=== PATIENT | female | born 1990 | race Caucasian/White ===

== ENCOUNTER 2017-03-16 11:40 | Observation (INO) | payer BC, MEDICAID ==
[~2017-03-16] VITALS: Ht 165.1 cm; Wt 96.6 kg
[2017-03-16] VITALS (11 sets, daily range): BP systolic 104–143; BP diastolic 62–85
[~2017-03-16 11:40] MED LIST: ACE3 PO; IBU800 PO; IBUP800T37 PO; MET2 PO; NORG1TAB76 PO; OXYC-865 PO; PER PO; PNV1TABL92 PO
--- NOTE | 2017-03-16 11:50 | ER Report ---
History and Physical Time Seen By MD: 11:50 (ALANNAH FERGUSON) HPI/ROS CHIEF COMPLAINT: Abdominal pain HISTORY OF PRESENT ILLNESS: This is a 26-year-old female who presents to the emergency department with right-sided abdominal pain. Patient states that she woke up at 2:30 this morning with right-sided abdominal pain into her right flank, has had some episodes of diarrhea as well with nausea no vomiting. Patient states that the pain does come around to the right groin as well. Patient denies dysuria, vaginal discharge or bleeding. Patient states her last menstrual cycle was 15 days ago and has been irregular for the last 2-3 cycles. She does have a follow-up a point with her STERILIZATION SPECIALIST tomorrow. She denies chest pain, shortness of breath, headaches, aches or chills. REVIEW OF SYSTEMS: Constitutional: No fever, no chills. Eyes: No discharge. ENT: No sore throat. Cardiovascular: No chest pain, no palpitations. Respiratory: No cough, no shortness of breath. Gastrointestinal: As above. Genitourinary: No hematuria. Musculoskeletal: As above. Skin: No rashes. Neurological: No headache. (ALANNAH FERGUSON) Allergies: Coded Allergies: No Known Drug Allergies (Verified , 07/28/12) Home Meds Reported Medications Ibuprofen (IBUPROFEN) 200 Mg Tablet, 1-2 TAB PO Q6H Y for PAIN, TAB 03/16/17 Discontinued Reported Medications Pnv Cmb#95/Ferrous Fumarate/Fa ( TABLET) 1 Each Tablet, 1 EACH PO DAILY 03/02/12 Discontinued Scripts Oxycodone Hcl/Acetaminophen (PERCOCET 5-325 MG TABLET) 1 Each Tablet, 1 EACH PO Q4-6H Y for PAIN, #20 TAB TAKE 1 TABLET NEEDED FOR PAIN - NO CLOSER THAN EVERY 4-6 HOURS. Prov:MEMO MITCHELL MD 07/21/14 Past Medical/Surgical History The patient has a past medical and surgical history of right foot fracture, wears glasses, wisdom teeth extraction, C-sections 2 (ALANNAH FERGUSON) Reviewed Nurses Notes: Yes (ALANNAH FERGUSON) Hx Smoking: No Smoking Status: Never Smoker Exposure to Second Hand Smoke?: No (ALANNAH FERGUSON [employer] ATTENDANT-BC) Constitutional Vital Sign - Last 24 Hours 03/16/17 03/16/17 03/16/17 03/16/17 11:40 11:44 11:50 11:55 Temp 98.1 Pulse ??? 94 91 Resp 18 B/P (MAP) 144/98 ???/??? (1665) Pulse Ox 97 95 03/16/17 03/16/17 03/16/17 03/16/17 12:00 12:10 12:25 12:40 Pulse ??? 78 79 B/P (MAP) ???/??? (166) Pulse Ox 96 96 03/16/17 03/16/17 03/16/17 03/16/17 12:45 13:00 13:15 13:30 Pulse 77 73 ??? 79 B/P (MAP) ???/??? (166) Pulse Ox 93 98 97 03/16/17 03/16/17 03/16/17 03/16/17 13:45 14:00 14:05 14:06 Pulse 75 83 82 B/P (MAP) ???/??? (1665) 130/90 (103) Pulse Ox 94 95 96 03/16/17 03/16/17 03/16/17 14:20 14:35 14:50 Pulse 79 78 ??? Pulse Ox 95 98 Intake and Output 03/16/17 03/16/17 03/17/17 15:00 23:00 07:00 Intake Total 1000 ml Balance 1000 ml (VERONICA MCGOVERN MD) Physical Exam General Appearance: The patient is alert, has no immediate need for airway protection and no signs of toxicity, sitting upright at the edge of the bed. Eyes: Pupils equal and round no pallor or injection. ENT, Mouth: Mucous membranes are moist. Respiratory: There are no retractions, lungs are clear to auscultation. Cardiovascular: Regular rate and rhythm, no murmurs, clicks or rubs. Gastrointestinal: Abdomen is soft tenderness to the RLQ with palpation, mild rebound tenderness to the right side, negative on the left. +psoas sign. No masses, bowel sounds normal. Neurological: Alert and oriented 4. Moving all extremities. Following all commands. No focal neuro deficits. Skin: Warm and dry, no rashes. Musculoskeletal: Neck is supple non tender. Right CVA tenderness. Extremities are nontender, nonswollen and have full range of motion. DIFFERENTIAL DIAGNOSIS: After history and physical exam differential diagnosis was considered for abdominal pain in a female including but not limited to ovarian cyst, pelvic inflammatory disease, ovarian torsion, urinary tract infection, and appendicitis, kidney stone. (ALANNAH [facility]ERGUSON [facility]-) Medical Decision Making Data Points Result Diagram: 03/16/17 1200 03/16/17 1200 Laboratory Hematology Test 03/16/17 11:46 03/16/17 12:00 Urine Color Straw Urine Clarity Clear Urine pH 5.0 pH (4.8-9.5) Urine Specific [place] 1.011 Urine Protein Negative mg/dL (NEGATIVE) Urine Glucose (UA) Negative mg/dL (NEGATIVE) Urine Ketones Negative mg/dL (NEGATIVE) Urine Blood Negative (NEGATIVE) Urine Nitrite Negative (NEGATIVE) Urine Bilirubin Negative (NEGATIVE) Urine Urobilinogen Negative mg/dL (0.2-1.9) Urine Leukocyte Esterase Negative (NEGATIVE) Urine RBC <1 /HPF (0-2/HPF) Urine WBC 1 /HPF (0-5/HPF) Urine Squamous Epithelial Cells Many /LPF (</=FEW) Urine Bacteria Negative /HPF (NONE-FEW) Urine Mucus None /HPF (NONE-FEW) Urine HCG, Qualitative Negative (NEGATIVE) Red Blood Count 5.02 M/uL (4.17-5.56) Mean Corpuscular Volume 86.6 fL (80.0-96.0) Mean Corpuscular Hemoglobin 29.7 pg (26.0-33.0) Mean Corpuscular Hemoglobin Concent 34.3 g/dL (32.0-36.0) Red Cell Distribution Width 12.4 % (11.5-14.5) Mean Platelet Volume 9.1 fL (7.2-11.1) Neutrophils (%) (Auto) 64.1 % (39.4-72.5) Lymphocytes (%) (Auto) 28.0 % (17.6-49.6) Monocytes (%) (Auto) 5.2 % (4.1-12.4) Eosinophils (%) (Auto) 0.6 % (0.4-6.7) Basophils (%) (Auto) 2.1 % (0.3-1.4) Nucleated RBC Relative Count (auto) 0.1 /100WBC Neutrophils # (Auto) 5.0 K/uL (2.0-7.4) Lymphocytes # (Auto) 2.2 K/uL (1.3-3.6) Monocytes # (Auto) 0.4 K/uL (0.3-1.0) Eosinophils # (Auto) 0.0 K/uL (0.0-0.5) Basophils # (Auto) 0.2 K/uL (0.0-0.1) Nucleated RBC Absolute Count (auto) 0.01 K/uL Sodium Level 139 mmol/L (137-145) Potassium Level 3.5 mmol/L (3.5-5.0) Chloride Level 104 mmol/L (98-107) Carbon Dioxide Level 21 mmol/L (22-31) Blood Urea Nitrogen 8 mg/dl (7-18) Creatinine 0.70 mg/dl (0.52-1.04) Glomerular Filtration Rate Calc > 60.0 Random Glucose 90 mg/dl (75-110) Calcium Level 9.2 mg/dl (8.4-10.2) Total Bilirubin 0.9 mg/dl (0.2-1.3) Aspartate Amino Transf (AST/SGOT) 25 U/L (0-35) Alanine Aminotransferase (ALT/SGPT) 32 U/L (0-56) Alkaline Phosphatase 70 U/L (0-126) Total Protein 7.7 gm/dl (6.3-8.2) Albumin 4.4 g/dl (3.5-5.0) Chemistry Test 03/16/17 11:46 03/16/17 12:00 Urine Color Straw Urine Clarity Clear Urine pH 5.0 pH (4.8-9.5) Urine Specific [place] 1.011 Urine Protein Negative mg/dL (NEGATIVE) Urine Glucose (UA) Negative mg/dL (NEGATIVE) Urine Ketones Negative mg/dL (NEGATIVE) Urine Blood Negative (NEGATIVE) Urine Nitrite Negative (NEGATIVE) Urine Bilirubin Negative (NEGATIVE) Urine Urobilinogen Negative mg/dL (0.2-1.9) Urine Leukocyte Esterase Negative (NEGATIVE) Urine RBC <1 /HPF (0-2/HPF) Urine WBC 1 /HPF (0-5/HPF) Urine Squamous Epithelial Cells Many /LPF (</=FEW) Urine Bacteria Negative /HPF (NONE-FEW) Urine Mucus None /HPF (NONE-FEW) Urine HCG, Qualitative Negative (NEGATIVE) White Blood Count 7.8 k/uL (4.5-11.0) Red Blood Count 5.02 M/uL (4.17-5.56) Hemoglobin 14.9 g/dL (12.0-16.0) Hematocrit 43.5 % (34.0-47.0) Mean Corpuscular Volume 86.6 fL (80.0-96.0) Mean Corpuscular Hemoglobin 29.7 pg (26.0-33.0) Mean Corpuscular Hemoglobin Concent 34.3 g/dL (32.0-36.0) Red Cell Distribution Width 12.4 % (11.5-14.5) Platelet Count 198 K/uL (150-450) Mean Platelet Volume 9.1 fL (7.2-11.1) Neutrophils (%) (Auto) 64.1 % (39.4-72.5) Lymphocytes (%) (Auto) 28.0 % (17.6-49.6) Monocytes (%) (Auto) 5.2 % (4.1-12.4) Eosinophils (%) (Auto) 0.6 % (0.4-6.7) Basophils (%) (Auto) 2.1 % (0.3-1.4) Nucleated RBC Relative Count (auto) 0.1 /100WBC Neutrophils # (Auto) 5.0 K/uL (2.0-7.4) Lymphocytes # (Auto) 2.2 K/uL (1.3-3.6) Monocytes # (Auto) 0.4 K/uL (0.3-1.0) Eosinophils # (Auto) 0.0 K/uL (0.0-0.5) Basophils # (Auto) 0.2 K/uL (0.0-0.1) Nucleated RBC Absolute Count (auto) 0.01 K/uL Glomerular Filtration Rate Calc > 60.0 Calcium Level 9.2 mg/dl (8.4-10.2) Total Bilirubin 0.9 mg/dl (0.2-1.3) Aspartate Amino Transf (AST/SGOT) 25 U/L (0-35) Alanine Aminotransferase (ALT/SGPT) 32 U/L (0-56) Alkaline Phosphatase 70 U/L (0-126) Total Protein 7.7 gm/dl (6.3-8.2) Albumin 4.4 g/dl (3.5-5.0) Urinalysis Test 03/16/17 11:46 Urine Color Straw Urine Clarity Clear Urine pH 5.0 pH (4.8-9.5) Urine Specific [place] 1.011 Urine Protein Negative mg/dL (NEGATIVE) Urine Glucose (UA) Negative mg/dL (NEGATIVE) Urine Ketones Negative mg/dL (NEGATIVE) Urine Blood Negative (NEGATIVE) Urine Nitrite Negative (NEGATIVE) Urine Bilirubin Negative (NEGATIVE) Urine Urobilinogen Negative mg/dL (0.2-1.9) Urine Leukocyte Esterase Negative (NEGATIVE) Urine RBC <1 /HPF (0-2/HPF) Urine WBC 1 /HPF (0-5/HPF) Urine Squamous Epithelial Cells Many /LPF (</=FEW) Urine Bacteria Negative /HPF (NONE-FEW) Urine Mucus None /HPF (NONE-FEW) Urine HCG, Qualitative Negative (NEGATIVE) (VERONICA MCGOVERN MD) EKG/Imaging Imaging Location: [facility] Patient: Elise Reza : 1990 Visit/Account:[id number] [facility] ABDOMEN/PELVIS WITH CONTRAST HISTORY: Right lower quadrant pain and right flank pain TECHNIQUE: Following administration of IV contrast contiguous axial images acquired through the abdomen/pelvis. Coronal and sagittal reformatting also performed. Dose Lowering Technique One of the following dose optimization techniques was utilized in the performance of this exam: Automated exposure control; adjustment of the mA and/ or kV according to the patient's size; or use of an iterative reconstruction technique. Specific details can be referenced in the facility's radiology CT exam operational policy. CONTRAST: 75 mL Isovue-370 COMPARISON: None. FINDINGS: Visualized lung bases: Negative. Hepatobiliary: Negative. Spleen: Accessory splenules Adrenals: Negative. Pancreas: Negative. Kidneys ureters or bladder: Negative. Genitalia: Is 1.3 cm left ovarian cyst GI: The appendix is visualized measuring seven mm in diameter . This is slightly above the normal range. There is very subtle haziness of the periappendiceal fat. At the junction of the cecum and the appendix there is a 6 mm calcification. Several small mesenteric lymph nodes are identified in the right lower quadrant. These changes could be the reflection of early acute appendicitis. Vessels/spaces/nodes: As above Bones/soft tissues: There is moderate disc space narrowing with sclerosis of the adjacent endplates at L5-S1 with a grade 1 anterior listhesis of L5 with respect S1 secondary to bilateral pars defects at L5 Additional findings: None pertinent. IMPRESSION: The appendix measures 7 mm in diameter which is slightly above the normal range. There is very subtle haziness of the periappendiceal fat and several small mesenteric lymph nodes in the right lower quadrant. At the junction of the cecum the appendix there is a 6 mm calcification possibly an appendicolith. These changes could be the reflection of early acute appendicitis. Clinical correlation needed Results were called to ALANNAH FERGUSON at 03/16/2017 2:18 PM. Report Dictated By: Renata Frausto MD at 03/16/2017 2:05 PM Report E-Signed By: Renata Frausto MD at 03/16/2017 2:18 PM WSN:AMICIVN (ALANNAH FERGUSON [employer] ATTENDANT-BC) ED Course/Re-evaluation Clinical Indication for ER IV: Hydration, IV Access ED Course Patient was admitted to a room. A history physical were obtained. Differential diagnoses were considered. An IV was started. A CBC, CMP were obtained. A 1 L normal saline bolus was given. 15 mg IV Toradol was given. 4 mg IV Zofran, 4 mg IV morphine. UA was negative. Abdomen pelvis with contrast was obtained. No kidney stones noted. However patient did have an appendicitis. I did review these results with the patient and her . I did contact Dr. Becker as noted below. Dr. Becker did come in and evaluate the patient, the patient was admitted to the medical surgical unit and will be going to surgery this evening. Patient had no other questions or concerns at the time of admission. 03/16/2017 2:32:36 pm I did speak with Dr. Becker regarding the patient's case, he will try to come in and see the patient shortly. I did update the patient and her regarding this and they are okay with waiting to speak with Dr. Becker. 03/16/2017 2:44:[address] Becker is here evaluating the patient for possible surgery. Decision to Disposition Date: Mar 16, 2017 Decision to Disposition Time: 14:55 (ALANNAH FERGUSONP-) Depart Departure Latest Vital Signs Vital Signs Date Time Temp Pulse Resp B/P (MAP) Pulse Ox O2 Delivery O2 Flow Rate FiO2 03/16/17 14:50 ??? 03/16/17 14:35 98 03/16/17 14:06 130/90 (103) 03/16/17 11:44 98.1 18 (VERONICA MCGOVERN MD) Impression: Primary Impression: Appendicitis Condition: Improved Disposition: Admitted from ER WOOL TAMPER/PA consult with MD: Verbally (VERONICA MCGOVERN MD) Problem Qualifiers Primary Impression: Appendicitis Appendicitis type: acute appendicitis Acute appendicitis type: unspecified acute appendicitis type Qualified Codes: K35.80 - Unspecified acute appendicitis ALANNAH FERGUSON [employer] ATTENDANT-BC Mar 16, 2017 11:50 VERONICA MCGOVERN MD Mar 16, 2017 12:26
[2017-03-16] MEDS ORDERED: NS(*) 0.9% 1000 ML BAG 1,000 ML IV ONE (11:58)
[2017-03-16] MEDS ORDERED: ONDANSETRON 4 MG/2 ML VIAL IVP ONE (12:00)
[2017-03-16] MEDS ORDERED: KETOROLAC 15 MG/ML VIAL IVP ONE (12:00)
[2017-03-16 12:15] LABS: PLATELET COUNT, AUTOMATED 198 K/uL (150-450)
[2017-03-16] MEDS ORDERED: IOPAMIDOL 76% 75 ML INFUS BTL 75 ML ONE (12:38)
[2017-03-16] MEDS ORDERED: NS 0.9% 20 ML SDV 40 ML ONE (12:38)
[2017-03-16] MEDS ORDERED: MORPHINE 4 MG/ML SDV IVP ONE (13:15)
--- NOTE | 2017-03-16 14:22 | RADIOLOGY IMAGING REPORT ---
FACILITY: [facility] PATIENT NAME: Elise Reza : 1990 MR: [id number] V: [id number] EXAM DATE: ORDERING PHYSICIAN: ALANNAH FERGUSON TECHNOLOGIST: Location: [facility] [place] Patient: Elise Reza : 1990 Visit/Account:[id number] Date of Sevice: 03/16/2017 ABDOMEN/PELVIS WITH CONTRAST HISTORY: Right lower quadrant pain and right flank pain TECHNIQUE: Following administration of IV contrast contiguous axial images acquired through the abdom en/pelvis. Coronal and sagittal reformatting also performed. Dose Lowering Technique One of the following dose optimization techniques was utilized in the performance of this exam: Autom ated exposure control; adjustment of the mA and/or kV according to the patient's size; or use of an i terative reconstruction technique. Specific details can be referenced in the facility's radiology C T exam operational policy. CONTRAST: 75 mL Isovue-370 COMPARISON: None. FINDINGS: Visualized lung bases: Negative. Hepatobiliary: Negative. Spleen: Accessory splenules Adrenals: Negative. Pancreas: Negative. Kidneys ureters or bladder: Negative. Genitalia: Is 1.3 cm left ovarian cyst GI: The appendix is visualized measuring seven mm in diameter . This is slightly above the normal range. There is very subtle haziness of the periappendiceal fat. At the junction of the cecum and t he appendix there is a 6 mm calcification. Several small mesenteric lymph nodes are identified in th e right lower quadrant. These changes could be the reflection of early acute appendicitis. Vessels/spaces/nodes: As above Bones/soft tissues: There is moderate disc space narrowing with sclerosis of the adjacent endplates at L5-S1 with a grade 1 anterior listhesis of L5 with respect S1 secondary to bilateral pars defects at L5 Additional findings: None pertinent. IMPRESSION: The appendix measures 7 mm in diameter which is slightly above the normal range. There is very subtl e haziness of the periappendiceal fat and several small mesenteric lymph nodes in the right lower nava drant. At the junction of the cecum the appendix there is a 6 mm calcification possibly an appendico lith. These changes could be the reflection of early acute appendicitis. Clinical correlation malcolm d Results were called to ALANNAH FERGUSON at 03/16/2017 2:18 PM. Report Dictated By: Renata Frausto MD at 03/16/2017 2:05 PM Report E-Signed By: Renata Frausto MD at 03/16/2017 2:18 PM WSN:NE
[2017-03-16] MEDS ORDERED: FAMOTIDINE(*) 20MG/50ML PREMIX 50 ML IVPB ONE (14:45)
[2017-03-16] MEDS ORDERED: NORMOSOL R SOLN(*) 1000 ML BAG 1,000 ML IV ONE (14:45)
[2017-03-16] MEDS ORDERED: cefOXitin/DEX(*) 2GM/50ML PREM 50 ML IVPB ONE (14:50)
--- NOTE | 2017-03-16 15:05 | General Surgery 1 H&P ---
History of Present Illness Chief Complaint right lower quadrant pain History of Present Illness 26 yo healthy female who awoke at 2:30 am with rigth lower quadrant pain. it is a steady aching pain that has increased throughout the day. it is worse with movement. she has discomfort with urination and discomfort with bms. she has had a couple of loose bms. she has nausea and no appetite. seen in ed. ct suggests appendicitis. History Other Past Surgeries: c sections times two Home Meds Active Scripts Ibuprofen (IBUPROFEN) 800 Mg Tablet, 1 TAB PO Q8H, #30 TAB Take with food every 8 hours. Prov:MEMO MITCHELL MD 07/21/14 Discontinued Reported Medications Pnv Cmb#95/Ferrous Fumarate/Fa ( TABLET) 1 Each Tablet, 1 EACH PO DAILY 03/02/12 Discontinued Scripts Oxycodone Hcl/Acetaminophen (PERCOCET 5-325 MG TABLET) 1 Each Tablet, 1 EACH PO Q4-6H Y for PAIN, #20 TAB TAKE 1 TABLET NEEDED FOR PAIN - NO CLOSER THAN EVERY 4-6 HOURS. Prov:MEMO MITCHELL MD 07/21/14 Allergies: Coded Allergies: No Known Drug Allergies (Verified , 07/28/12) Review of Systems History of Hypertension?: No History of Diabetes?: No History of DVT?: No Obstructive Sleep Apnea?: No History of Liver Disease?: No History of Kidney Disease?: No Respiratory: Denies Shortness of Breath, Denies Other Cardiovascular: Denies Chest Pain, Denies Other Exam Vital Signs Date Time Temp Pulse Resp B/P (MAP) Pulse Ox O2 Delivery O2 Flow Rate FiO2 03/16/17 14:06 130/90 (103) 03/16/17 14:00 83 95 03/16/17 11:44 98.1 18 General Appearance: Alert, Awake, No Acute Distress Cardiovascular: Regular Rate and Rhythm Respiratory: Clear to Auscultation GI: Other (tender with guarding in the right lower quadrant) Medical Decision Making Data Points Result Diagram: 03/16/17 1200 03/16/17 1200 Assessment and Plan Problems: (1) Appendicitis Status: Acute Assessment & Plan: lap appy Copies to: EMY KELLEY MD Venous Thromboembolism Antithrombotics Is Pt On Any Antithrombotics?: No Problem Qualifiers (1) Appendicitis: Appendicitis type: acute appendicitis Acute appendicitis type: unspecified acute appendicitis type Qualified Codes: K35.80 - Unspecified acute appendicitis EMY KELLEY MD Mar 16, 2017 15:05
[2017-03-16] MEDS ORDERED: NORMOSOL R SOLN(*) 1000 ML BAG 1,000 ML IV PRN (15:06)
[2017-03-16] MEDS ORDERED: MORPHINE 1 MG/ML 30 ML PCA IV PRN (15:10)
[2017-03-16] MEDS ORDERED: IBUP-56 PO (15:28)
[2017-03-16] MEDS ORDERED: PROPOFOL EMUL(*) 10MG/ML 20 ML 20 ML ONE (15:38)
[2017-03-16] MEDS ORDERED: ROCURONIUM BROM 10 MG/ML 10 ML ONE (15:38)
[2017-03-16] MEDS ORDERED: SUGAMMADEX SOD 200 MG/2 ML SDV ONE (15:38)
[2017-03-16] MEDS ORDERED: fentaNYL CITR 250 MCG/5 ML AMP ONE (15:38)
[2017-03-16] MEDS ORDERED: LIDOCAINE MPF 1% 5 ML VIAL ONE (15:38)
[2017-03-16] MEDS ORDERED: DEXAMETHASONE SOD 4 MG/ML VIAL ONE (15:38)
[2017-03-16] MEDS ORDERED: ONDANSETRON 4 MG/2 ML VIAL ONE (15:38)
[2017-03-16] MEDS ORDERED: NALOXONE HCL 0.4 MG/ML VIAL IVP PRN (15:40)
[2017-03-16] MEDS ORDERED: KETAMINE HCL 200 MG/20 ML MDV ONE (15:45)
--- NOTE | 2017-03-16 17:14 | Post Operative Progress Note ---
Post Operative Progress Note Date: Mar 16, 2017 Time: 17:49 Surgeon: alfonso Anesthesia: dr joshi Pre-Op Diagnosis: appendicitis Post-Op Diagnosis: same Procedure(s): EMY Aguilar MD Mar 16, 2017 17:14
[2017-03-16] MEDS ORDERED: ONDANSETRON 4 MG/2 ML VIAL IVP PRN (17:15)
[2017-03-16] MEDS ORDERED: NS 0.9% IRRIGATION 1000ML PLCT IR ONE (17:37)
[2017-03-16] MEDS: KETOROLAC 30 MG/ML VIAL IVP SCH ×2 (18:00→23:23)
[2017-03-16] MEDS ORDERED: fentaNYL CITR 100 MCG/2 ML AMP ONE ×2 (18:08→18:25)
[2017-03-16] MEDS: APAP/HYDROCODONE 325/5 TAB PO PRN (21:01)
[2017-03-16] MEDS: cefOXitin/DEX(*) 1GM/50ML PREM 50 ML IVPB SCH (21:48)
[2017-03-17 02:00] VITALS: BP 110/76
[2017-03-17 05:33] VITALS: BP 115/55
[2017-03-17] MEDS: KETOROLAC 30 MG/ML VIAL IVP SCH (05:36)
[2017-03-17] MEDS: cefOXitin/DEX(*) 1GM/50ML PREM 50 ML IVPB SCH (05:36)
[2017-03-17] MEDS: APAP/HYDROCODONE 325/5 TAB PO PRN (06:30)
--- NOTE | 2017-03-17 07:00 | General Surgery Progress Note ---
Subjective Progress Notes Subjective no complaints, tolerating diet, ambulated Physical Exam Vital Signs Date Time Temp Pulse Resp B/P (MAP) Pulse Ox O2 Delivery O2 Flow Rate FiO2 03/17/17 05:33 97.9 73 16 115/55 (75) 94 Room Air 03/16/17 23:23 1.0 General Appearance: Alert, Awake, No Acute Distress GI: Soft and Non-Tender Result Diagram: 03/16/17 1200 03/16/17 1200 Assessment and Plan Problems: (1) Appendicitis Status: Acute Assessment & Plan: lap appy 03/17/17 doing well, home today Exam Sepsis Risk: No Definite Risk Problem Qualifiers (1) Appendicitis: Appendicitis type: acute appendicitis Acute appendicitis type: unspecified acute appendicitis type Qualified Codes: K35.80 - Unspecified acute appendicitis EMY KELLEY MD Mar 17, 2017 07:00
[2017-03-17] MEDS ORDERED: KET10 PO (07:01)
[2017-03-17] MEDS ORDERED: HYDR-4309 PO (07:01)
--- NOTE | 2017-03-17 07:02 | Short(Outpt) Discharge Summary ---
Discharge Summary Reason for Hosp/Final Diag: (1) Appendicitis Status: Acute Hospital Course & Plan: jacquie mcdermott 03/17/17 doing well, home today Departure Discharge to: Home Discharge Instructions Home Meds Active Scripts Hydrocodone Bit/Acetaminophen (NORCO 5-325 TABLET) 1 Each Tablet, 1 EACH PO Q4H Y for PAIN, #30 TAB Prov:EMY KELLEY MD 03/17/17 Ketorolac Tromethamine (KETOROLAC TROMETHAMINE) 10 Mg Tab, 10 MG PO Q6H, #16 TAB Prov:EMY KELLEY MD 03/17/17 Reported Medications Ibuprofen (IBUPROFEN) 200 Mg Tablet, 1-2 TAB PO Q6H Y for PAIN, TAB 03/16/17 Discontinued Reported Medications Pnv Cmb#95/Ferrous Fumarate/Fa ( TABLET) 1 Each Tablet, 1 EACH PO DAILY 03/02/12 Discontinued Scripts Oxycodone Hcl/Acetaminophen (PERCOCET 5-325 MG TABLET) 1 Each Tablet, 1 EACH PO Q4-6H Y for PAIN, #20 TAB TAKE 1 TABLET NEEDED FOR PAIN - NO CLOSER THAN EVERY 4-6 HOURS. Prov:MEMO MITCHELL MD 07/21/14 Diet: Regular Activity: As Tolerated Special Instructions: ice to incision for 48 hours remove bandage and shower tomorrow to see me in one week, call [phone] for apt Problem Qualifiers (1) Appendicitis: Appendicitis type: acute appendicitis Acute appendicitis type: unspecified acute appendicitis type Qualified Codes: K35.80 - Unspecified acute appendicitis EMY KELLEY MD Mar 17, 2017 07:02
[2017-03-17 07:04] VITALS: BP 132/72
[2017-03-17 10:49] VITALS: Ht 165.1 cm; Wt 96.6 kg
--- NOTE | 2017-03-17 20:08 | OPERATIVE REPORT 1 ---
EVENT DATE: March 16, 2017 SURGEON: Chetan Becker MD ANESTHESIOLOGIST: Albert Guillaume MD ANESTHESIA: General. PREOPERATIVE DIAGNOSIS Acute appendicitis. POSTOPERATIVE DIAGNOSIS Acute appendicitis. PROCEDURE PERFORMED Laparoscopic appendectomy. DESCRIPTION OF PROCEDURE The patient was placed in the supine position and given general anesthetic. Her abdomen was prepped and draped in a sterile fashion. The skin was anesthetized with 0.2% ropivacaine. A small incision was made above the umbilicus. A Veress needle was inserted. The abdomen was insufflated with CO2. A 5 mm port was placed under direct vision. We then placed a 5 mm in the left lower quadrant and a 10 mm in the suprapubic region under direct vision. The patient was placed in Trendelenburg rotated to the left. We entered the right lower quadrant and identified a fat, distended appendix with a fibrotic tip. The mesoappendix was divided with a Harmonic scalpel to the appendiceal- cecal junction. We then placed an 0 chromic Endoloop there, 2-0 PDS Endoloops distal to this, cut between the two PDS Endoloops, placed the appendix in an Endo Pouch, and removed it from the field. We inspected for bleeding. We had perfect hemostasis. The ports were removed under direct vision. No bleeding was noted. She had a small, most likely umbilical hernia with a small piece of omentum in it. We left that alone. The skin was closed with interrupted 4-0 Maxon. Steri-Strips and an Airstrip were placed. The patient tolerated the procedure well with no apparent complications. LADAN
== END 2017-03-17 07:02 | disposition home or self-care (01) ==
LOC: ER 11:46 → MED 14:56 → INTOOBSV 14:56
PROVIDERS: ADMIT Surgery; ATTEND Surgery
DX: K35.80 Unspecified acute appendicitis (principal)
CPT/HCPCS: 44970; 74177; 81001; 81025; 85025; 88304; 96361; 96374; 96375; 99284; G0378; J0694; J1100; J1885; J2001; J2270; J2405; J2704; J3010; J3490; J7050; Q9967; 82040; 82247; 82310; 82374; 82435; 82565; 82947; 84075; 84132; 84155; 84295; 84450; 84460; 84520; J7030